=== PATIENT | male | born 1995 | race Caucasian/White ===

== ENCOUNTER 2019-05-24 03:48 | Emergency (ER) | payer OTHER ==
[~2019-05-24] VITALS: Ht 175.3 cm; Wt 95.3 kg
[2019-05-24] MEDS ORDERED: HYDROCODON-ACE1 EAC7 PO (04:29)
[2019-05-24] MEDS ORDERED: CORTISPORIN OTI10 M2 OTIC (04:29)
[2019-05-24 04:35] VITALS: BP 132/89
== END 2019-05-24 04:35 | disposition home or self-care (01) ==
LOC: M.ERS 03:48
DX: T16.2XXA Foreign body in left ear, initial encounter (principal); S00.412A Abrasion of left ear, initial encounter; X58.XXXA Exposure to other specified factors, initial encounter; Y93.89 Activity, other specified; Y92.89 Other specified places as the place of occurrence of the external cause; Y99.8 Other external cause status